=== PATIENT | female | born 2000 | race Two or more races ===

== ENCOUNTER 2024-08-11 05:24 | Inpatient (IN) | payer OTHER ==
[~2024-08-11] VITALS: Ht 157.5 cm; Wt 62.6 kg
[~2024-08-11 05:24] MED LIST: ALBUTEROL2.5 MG/3 M IH; BUDESONIDE0.5 MG/2 M IH; PHENAGIL CH TA1 EACH PO; ZITHROMAX TRI-500 MG PO
[2024-08-11 06:00] VITALS: BP 116/66
[2024-08-11] MEDS ORDERED: PRENATAL TABLE1 EAC1 PO (06:55)
[2024-08-11 07:08] VITALS: BP 116/67
[2024-08-11] MEDS ORDERED: OXYTOCIN 500 ML IV SCH (07:15)
[2024-08-11] MEDS ORDERED: RINGERS SOLUTION,LACTATED 1,000 ML IV SCH (07:15)
[2024-08-11 07:21] LABS: URINE APPEARANCE Clear; URINE BILIRRUBIN Negative (NEGATIVE); URINE BLOOD Negative; URINE COLOR Yellow; URINE GLUCOSE Negative (NEGATIVE); URINE KETONE Negative (NEGATIVE); URINE LEUKOCYTE Trace; URINE NITRATE Negative; URINE PROTEIN Negative (NEGATIVE)
[2024-08-11 07:22] LABS: HEMATOCRIT 34.9 % (36.0-45.00); HEMOGLOBIN 12.3 g/dL (12.0-15.00); MEAN CELL VOLUME 90.5 fL (80.00-100.00); MEAN CORPUSCULAR HEMOGLOBIN 31.9 pg (27.00-32.0); MEAN CORPUSCULAR HGB CONC 35.3 g/dl (32.0-36.0); PLATELET COUNT 243 K/uL (150-450); RED BLOOD COUNT 3.85 M/uL (4.00-6.00); RED CELL DISTRIBUTION WIDTH 14.5 % (11.5-14.5)
[2024-08-11 07:22] LABS: URINE BACTERIA 2038.5 uL (0.0-1933); URINE RBC 2.5 uL (0.0-20.8); URINE WBC 35.5 uL (0.0-23.2)
[2024-08-11 07:28] LABS: INR 0.94; PARTIAL THROMBOPLASTIN TIME 29.1 SECONDS (22.0-34.0); PROTHROMBIN TIME 10.3 SECONDS (9.0-11.5)
[2024-08-11 07:37] LABS: ALBUMIN 2.8 gm/dL (3.4-5.0); BILIRUBIN TOTAL 0.67 mg/dL (0.3-1.2); CALCIUM 8.8 mg/dL (8.5-10.1); CREATININE SERUM 0.47 mg/dL (0.55-1.02); GFR 164.21; POTASSIUM 3.98 mEq/L (3.5-5.1); TOTAL PROTEIN 6.8 gm/dL (6.4-8.2)
[2024-08-11 07:54] LABS: URINE CAST 0.45 uL (0.0-1.40)
[2024-08-11] MEDS ORDERED: PROMETHAZINE HCL 25 MG/ML AMPUL IV ONE (10:15)
[2024-08-11] MEDS ORDERED: MEPERIDINE HCL/PF 50 MG/ML VIAL IV ONE (10:15)
[2024-08-11 11:32] VITALS: BP 118/72
[2024-08-11] MEDS ORDERED: CHLORHEXIDINE GLUCONATE 120 ML BOTTLE TOP ONE (11:45)
[2024-08-11] MEDS ORDERED: ACETAMINOPHEN 325 MG TABLET PO PRN (11:45)
[2024-08-11] MEDS ORDERED: OxyCODONE HCL/APAP UD (PERCOCET) PO PRN (11:45)
[2024-08-11] MEDS ORDERED: OXYTOCIN 20 UNITS/1000ML RL PIGGYBAG IV ONE (11:45)
[2024-08-11 11:47] VITALS: BP 110/74
[2024-08-11] MEDS ORDERED: LIDOCAINE HCL 1% 10ML VIAL IJ ONE (12:00)
[2024-08-11] MEDS ORDERED: ERYTHROMYCIN BASE OPHT 1GM EACH TUBE OP ONE (12:00)
[2024-08-11] MEDS ORDERED: BENZOCAINE/MENTHOL 90 ML BOTTLE TOP SCH (13:00)
[2024-08-11] MEDS ORDERED: HYDROCORTISONE 2.5% 30 GM TUBE RECTAL SCH (13:00)
[2024-08-11 13:02] VITALS: BP 108/71
[2024-08-11 16:00] VITALS: BP 103/66
[2024-08-12 01:03] VITALS: BP 113/73
[2024-08-12 01:46] LABS: HEMATOCRIT 30.2 % (36.0-45.00); HEMOGLOBIN 10.4 g/dL (12.0-15.00); MEAN CELL VOLUME 89.9 fL (80.00-100.00); MEAN CORPUSCULAR HGB CONC 34.5 g/dl (32.0-36.0); PLATELET COUNT 241 K/uL (150-450); RED BLOOD COUNT 3.36 M/uL (4.00-6.00); RED CELL DISTRIBUTION WIDTH 14.3 % (11.5-14.5)
[2024-08-12 08:45] VITALS: BP 99/65
[2024-08-12 16:13] VITALS: BP 100/67
[2024-08-13 00:21] VITALS: BP 112/71
[2024-08-13 08:00] VITALS: BP 105/71
== END 2024-08-13 12:20 | disposition home or self-care (01) | DRG 807 ==
LOC: LDR 05:24 → OB/GYN 05:24
PROVIDERS: ADMIT Specialist; ATTEND Specialist
PROC: 10E0XZZ Delivery of Products of Conception, External Approach (ICD-10-PCS; principal; 2024-08-11)
PROC: 0HQ9XZZ Repair Perineum Skin, External Approach (ICD-10-PCS; 2024-08-11)
PROC: 4A1HXCZ Monitoring of Products of Conception, Cardiac Rate, External Approach (ICD-10-PCS; 2024-08-11)
DX: O70.0 First degree perineal laceration during delivery (principal); Z37.0 Single live birth; Z3A.39 39 weeks gestation of pregnancy; Z20.822 Contact with and (suspected) exposure to COVID-19

== ENCOUNTER 2025-10-17 13:45 | Emergency (ER) | payer OTHER ==
[~2025-10-17] VITALS: Ht 157.5 cm; Wt 44.5 kg
[~2025-10-17 13:45] MED LIST changes: +PRENATAL TABLE1 EAC1 PO
[2025-10-17 14:38] VITALS: BP 108/73; O2SAT 98
[2025-10-17] MEDS ORDERED: ACETAMINOPHEN 500 MG GEL..CAP PO ONE ×2 (15:30→17:47)
[2025-10-17] MEDS ORDERED: HYDROCODONE/CHLORPHEN P-STIREX 5 ML ML PO ONE (15:30)
[2025-10-17] MEDS ORDERED: METHYLPREDNISOLONE SOD SUCC 125 MG VIAL IV ONE (15:30)
[2025-10-17] MEDS ORDERED: METHYLPREDNISOLONE SOD SUCC 125 MG VIAL ONE (17:48)
[2025-10-17 18:21] LABS: BASO % 0.2 % (0.1-1.2); EOS # 0.01 (0.04-0.54); EOS % 0.1 % (0.7-7.0); LYMPH # 2.22 (1.18-3.74); LYMPH % 23.0 % (19.3-53.1); MEAN PLATELET VOLUME 10.20 fl (9.4-12.4); MONO # 0.74 (0.24-0.82); MONO % 7.7 % (4.7-12.5); NEUT # 6.62 (1.56-6.13); NEUT % 68.7 % (34.0-71.1); RED CELL DISTRIBUTION WIDTH 14.0 % (11.6-14.4)
[2025-10-17 18:54] LABS: ALT/SGPT 15.0 U/L (12-78); AST/SGOT 15.0 U/L (15-37); BILIRUBIN TOTAL 0.65 mg/dL (0.3-1.2); BUN CREA RATIO 12.0 (7.0-25.0); CREATININE SERUM 0.69 mg/dL (0.55-1.02); GFR 104.52; GLOBULINA 5.5 G/DL (2.4-3.5); GLUCOSE FASTING 94.0 mg/dL (65-100); OSMOLALITY SERUM 270.0 MOSM/KG (275-295)
[2025-10-17 19:41] LABS: COVID-19 AG NEGATIVE (NEGATIVE)
[2025-10-17] MEDS ORDERED: TUSICOF LIQUID120 ML PO (19:56)
[2025-10-17] MEDS ORDERED: OSEL75CA PO (19:56)
== END 2025-10-17 21:34 | disposition home or self-care (01) ==
LOC: ER 13:46
PROVIDERS: General Practice
DX: B34.9 Viral infection, unspecified (principal); J06.9 Acute upper respiratory infection, unspecified; R50.9 Fever, unspecified; R05.8 Other specified cough; Z20.822 Contact with and (suspected) exposure to COVID-19